=== PATIENT | female | born 1985 | race Caucasian/White ===

== ENCOUNTER 2016-12-05 01:00 | Inpatient (IN) | payer OTHER ==
[~2016-12-05] VITALS: Ht 170.2 cm; Wt 90.0 kg
[2016-12-05] VITALS (14 sets, daily range): BP systolic 100–157; BP diastolic 53–90
[2016-12-05] MEDS ORDERED: OXYTOCIN INJ 20 UNIT in NS 1000ml 1,000 ML IV PRN (01:33)
[2016-12-05] MEDS ORDERED: CALCIUM CARBONATE CHEWABLE 300 MG (TUMS) TABLET PO PRN (01:35)
[2016-12-05] MEDS ORDERED: SODIUM CHLORIDE FLUSH 10 ML SYR IV PRN (01:35)
[2016-12-05 02:40] LABS: MEAN PLATELET VOLUME 11.5 FL (6.0-9.5); WHITE BLOOD COUNT 10.29 10^3uL (4.0-11.0)
[2016-12-05 02:57] LABS: MEAN CORPUSCULAR HEMOGLOBIN 33.1 PG (26.0-34.0); MEAN CORPUSCULAR HGB CONC 37.3 g/dL (31.0-37.0)
[2016-12-05] MEDS ORDERED: OXYTOCIN 10 UNIT/ML (PITOCIN) 1 ML VIAL ONE (05:34)
[2016-12-05] MEDS ORDERED: MINERAL OIL ONE (06:26)
[2016-12-05] MEDS ORDERED: LIDOCAINE 1% (XYLOCAINE) 20 ML VIAL ONE (06:33)
[2016-12-05] MEDS ORDERED: LIDOCAINE/EPINEPHRINE 1% 1:100,000 (XYLOCAINE) 30 ML VIAL INJ ONE ×2 (06:34→07:00)
[2016-12-05] MEDS ORDERED: MINERAL OIL 25 ML BTL TOP PRN (07:00)
[2016-12-05] MEDS ORDERED: HYDROcodone/APAP 5 MG/325 MG (NORCO) TAB PO PRN (07:35)
[2016-12-05] MEDS ORDERED: LANOLIN OINTMENT 28 GM TUBE TOP PRN (07:35)
[2016-12-05] MEDS ORDERED: M-M-R II (MEASLES,MUMPS,RUBELLA) VACCINE SC SCH (07:35)
[2016-12-05] MEDS: IBUPROFEN 600 MG (MOTRIN) TAB PO PRN ×3 (10:43→22:33)
[2016-12-05] MEDS ORDERED: ARTIFICIAL TEARS (REFRESH) OPHTHALMIC DROPS OD PRN (12:30)
--- NOTE | 2016-12-05 12:32 | NUR ---
Pt up walking in hallway. Infant in room being assess by Dr Schultz.
[2016-12-05] MEDS ORDERED: DOCUSATE SODIUM 100 MG (COLACE) CAP PO SCH (21:00)
[2016-12-06] MEDS: IBUPROFEN 600 MG (MOTRIN) TAB PO PRN ×2 (08:19→15:14)
[2016-12-06 08:50] VITALS: BP 128/85
--- NOTE | 2016-12-06 15:00 | NUR ---
Discharge education and instructions reviewed with patient. Questions and concerns addressed and answered. Infant bracelet removed and verified with patients. Discharge paper work signed.
--- NOTE | 2016-12-06 15:30 | NUR ---
Pt discharged ambulatory status. being carried by FOB in infant carrier. Personal belongings gathered. Patient and infant discharged by POV
== END 2016-12-06 15:30 | disposition home or self-care (01) | DRG 775 ==
LOC: EUOP 01:00 → OB 01:01 → EUOP 01:24 → OB 01:25
PROVIDERS: ADMIT Family Medicine; ATTEND Family Medicine
PROC: 0KQM0ZZ Repair Perineum Muscle, Open Approach (ICD-10-PCS; principal; 2016-12-05)
PROC: 10E0XZZ Delivery of Products of Conception, External Approach (ICD-10-PCS; principal; 2016-12-05)
DX: O70.1 Second degree perineal laceration during delivery (principal); Z37.0 Single live birth; Z3A.39 39 weeks gestation of pregnancy
CPT/HCPCS: 36415; 85014; 85018; 85027; 86850; 86900; 86901